=== PATIENT | male | born 1975 | race Two or more races ===

== ENCOUNTER 2020-07-08 12:35 | Emergency (ER) | payer OTHER ==
[~2020-07-08] VITALS: Ht 165.1 cm; Wt 83.9 kg
[2020-07-08] MEDS ORDERED: ACETAMINOPHEN 500 MG TAB PO ONE (13:00)
[2020-07-08] MEDS ORDERED: ONDANSETRON ODT 4 MG TAB PO ONE (13:00)
[2020-07-08] MEDS ORDERED: FAMOTIDINE (10MG/ML) 2ML VL IV ONE (13:15)
[2020-07-08] MEDS ORDERED: SODIUM CHLORIDE 0.9% 1,000 ML IV ONE (13:15)
[2020-07-08] MEDS ORDERED: ONDANSETRON HCL 4 MG/2 ML VIAL IV ONE (13:15)
[2020-07-08 13:54] LABS: Basophils # (auto) 0 10 ^3/uL (0-0.2); Basophils % (auto) 0.3 % (0.0-2.0); Eosinophils # (auto) 0 10 ^3/uL (0-0.8); Eosinophils % (auto) 0.4 % (0.0-7.0); Hematocrit 43.2 % (41.0-53.0); Hemoglobin 14.9 g/dL (13.5-17.5); Lymphocytes # (auto) 0.3 10 ^3/uL (0.4-5.4); Lymphocytes % (auto) 3.6 % (10.0-50.0); Mean Corpuscular Hemoglobin 29.4 pg (28.0-32.0); Mean Corpuscular Hgb Conc. 34.5 g/dL (32.0-36.0); Mean Corpuscular Volume 85.3 fL (80.0-100.0); Monocytes # (auto) 0.4 10 ^3/uL (0-1.3); Monocytes % (auto) 4.1 % (0.0-12.0); Neutrophils # (auto) 8.8 10 ^3/uL (1.6-8.6); Neutrophils % (auto) 91.6 % (37.0-80.0); Nucleated Red Blood Cells % 0.1 %; Platelet Count (auto) 154 10^3/uL (140-450); Red Blood Cells 5.07 10^6/uL (4.5-5.90); Red Cell Distribution Width 14.4 % (11.8-14.3); White Blood Cell 9.6 10^3/uL (4.4-10.8)
[2020-07-08 14:16] LABS: BUN/Creatinine Ratio 14.4; Calcium 8.6 mg/dL (8.5-10.1)
[2020-07-08 14:18] LABS: Bilirubin, Total 0.7 mg/dL (0.2-1.0); Total Protein 7.8 g/dL (6.4-8.2)
[2020-07-08] MEDS ORDERED: POTASSIUM CHL 20 Meq TABLET PO ONE (14:30)
[2020-07-08] MEDS ORDERED: POTASSIUM EFFERVESENT TAB 25 MEQ GT ONE (14:30)
[2020-07-08] MEDS ORDERED: cefTRIAXone 1GM/50ML D5W 50 ML IV ONE (14:30)
[2020-07-08] MEDS ORDERED: cloNIDine HCL 0.1 MG TAB PO ONE (15:00)
[2020-07-08 17:07] VITALS: BP 152/88
== END 2020-07-08 17:33 | disposition home or self-care (01) ==
LOC: ER 12:35
DX: K52.9 Noninfective gastroenteritis and colitis, unspecified (principal); E87.6 Hypokalemia; I10 Essential (primary) hypertension; Z20.822 Contact with and (suspected) exposure to COVID-19
CPT/HCPCS: 36415; 71045; 80053; 85025; 87426; 96361; 96365; 96375; 99284; J0696; J2405; J3490

== ENCOUNTER 2020-09-03 06:28 | Emergency (ER) | payer OTHER ==
[~2020-09-03] VITALS: Ht 170.2 cm; Wt 95.3 kg
[2020-09-03] MEDS ORDERED: HYDROcodone-ACET 5/325MG TAB PO ONE (06:45)
[2020-09-03 08:42] VITALS: BP 171/108
== END 2020-09-03 08:46 | disposition home or self-care (01) ==
LOC: ER 06:28
DX: S09.90XA Unspecified injury of head, initial encounter (principal); S02.2XXA Fracture of nasal bones, initial encounter for closed fracture; X58.XXXA Exposure to other specified factors, initial encounter; Y93.89 Activity, other specified; Y92.89 Other specified places as the place of occurrence of the external cause; Y99.8 Other external cause status
CPT/HCPCS: 70450; 70486; 72125

== ENCOUNTER 2021-09-29 06:09 | Emergency (ER) | payer OTHER ==
[~2021-09-29] VITALS: Ht 170.2 cm; Wt 86.2 kg
[2021-09-29 08:30] LABS: Basophils # (auto) 0.1 10 ^3/uL (0-0.2); Basophils % (auto) 0.5 % (0.0-2.0); Eosinophils # (auto) 0.1 10 ^3/uL (0-0.8)
[2021-09-29 08:32] LABS: Eosinophils % (auto) 0.6 % (0.0-7.0); Hemoglobin 14.7 g/dL (13.5-17.5); Lymphocytes # (auto) 0.6 10 ^3/uL (0.4-5.4); Lymphocytes % (auto) 5.2 % (10.0-50.0); Mean Corpuscular Hemoglobin 26.8 pg (28.0-32.0); Mean Corpuscular Hgb Conc. 32.7 g/dL (32.0-36.0); Mean Corpuscular Volume 81.7 fL (80.0-100.0); Monocytes # (auto) 0.7 10 ^3/uL (0-1.3); Monocytes % (auto) 5.8 % (0.0-12.0); Neutrophils # (auto) 10.3 10 ^3/uL (1.6-8.6); Neutrophils % (auto) 87.9 % (37.0-80.0); Red Blood Cells 5.51 10^6/uL (4.5-5.90); Red Cell Distribution Width 15.4 % (11.8-14.3); White Blood Cell 11.7 10^3/uL (4.4-10.8)
[2021-09-29 08:52] LABS: Albumin 3.4 g/dL (3.4-5.0); Calcium 8.3 mg/dL (8.5-10.1); Potassium 3.7 mmol/L (3.5-5.1)
[2021-09-29 08:55] LABS: Bilirubin, Total 0.3 mg/dL (0.2-1.0); Total Protein 7.1 g/dL (6.4-8.2)
[2021-09-29 11:55] LABS: Urine Bacteria NONE SEEN /hpf (None Seen); Urine Blood Negative /uL (Negative); Urine Specific Gravity 1.015 (1.001-1.035); Urine WBC <1 /hpf (0 - 3)
[2021-09-29 15:51] VITALS: BP 133/87
== END 2021-09-29 18:22 | disposition home or self-care (01) ==
LOC: ER 06:09
DX: K42.9 Umbilical hernia without obstruction or gangrene (principal); K46.9 Unspecified abdominal hernia without obstruction or gangrene; I10 Essential (primary) hypertension
CPT/HCPCS: 36415; 74176; 80053; 81001; 85025

== ENCOUNTER 2023-12-08 17:20 | Inpatient (IN) | payer OTHER ==
[~2023-12-08] VITALS: Ht 170.2 cm; Wt 87.0 kg
[2023-12-08 17:49] VITALS: PULSE 113; RESP 20; O2SAT 94
[2023-12-08 18:15] LABS: Basophils # (auto) 0.1 10 ^3/uL (0-0.2); Eosinophils # (auto) 0 10 ^3/uL (0-0.8); Mean Corpuscular Hgb Conc. 32.4 g/dL (32.0-36.0)
[2023-12-08 18:17] LABS: Basophils % (auto) 0.6 % (0.0-2.0); Eosinophils % (auto) 0.2 % (0.0-7.0); Hematocrit 37.4 % (41.0-53.0); Hemoglobin 12.1 g/dL (13.5-17.5); Lymphocytes # (auto) 2.1 10 ^3/uL (0.4-5.4); Lymphocytes % (auto) 15.9 % (10.0-50.0); Mean Corpuscular Hemoglobin 25.6 pg (28.0-32.0); Mean Corpuscular Volume 78.9 fL (80.0-100.0); Monocytes # (auto) 1.1 10 ^3/uL (0-1.3); Monocytes % (auto) 8.2 % (0.0-12.0); Neutrophils % (auto) 75.1 % (37.0-80.0); Nucleated Red Blood Cells % 0.1 %; Platelet Count (auto) 237 10^3/uL (140-450); Red Blood Cells 4.73 10^6/uL (4.5-5.90); Red Cell Distribution Width 17.2 % (11.8-14.3); White Blood Cell 13.3 10^3/uL (4.4-10.8)
[2023-12-08 18:38] LABS: INR 1.03 (0.9-1.15); Partial Thromboplastin Time 24.5 SEC (24.5-34.5); Prothrombin Time 10.9 sec (9.3-11.8)
[2023-12-08 18:42] LABS: Alanine Aminotransferase 69 U/L (7-40); Alkaline Phosphatase 133 U/L (46-116); Anion Gap 8 (5-15); Aspartate Aminotransferase 45 U/L (13-40); BUN/Creatinine Ratio 23.9 (10.0-20.0); Blood Urea Nitrogen 37 mg/dL (9-23); Calcium 9.5 mg/dL (8.7-10.4); Carbon Dioxide 30 mmol/L (20-30); Chloride 96 mmol/L (98-107); Glucose 88 mg/dL (74-106); Magnesium 2.1 mg/dL (1.6-2.6); Potassium 3.8 mmol/L (3.5-5.1); Sodium 134 mmol/L (136-145)
[2023-12-08 18:43] LABS: Albumin 4.4 g/dL (3.2-4.8); Bilirubin, Total 0.4 mg/dL (0.2-1.0)
[2023-12-08] MEDS ORDERED: TPN PER PHARMACY 0 ML IV SCH (19:15)
[2023-12-08 20:00] VITALS: PULSE 115; O2SAT 96
[2023-12-08] MEDS: SODIUM CHLORIDE 0.9% 1,000 ML IV ONE (21:09)
[2023-12-08] MEDS ORDERED: NITROGLYCERIN 0.4 MG SL TAB SL PRN (21:15)
[2023-12-08] MEDS ORDERED: ONDANSETRON HCL 4 MG/2 ML VIAL IV PRN (21:15)
[2023-12-08] MEDS ORDERED: ACETAMINOPHEN 325 MG TAB PO PRN (21:15)
[2023-12-08] MEDS: GABAPENTIN 100 MG CAP PO SCH (21:37)
[2023-12-08] MEDS: METOPROLOL TARTRATE 25 MG TAB PO SCH (21:37)
[2023-12-08] MEDS: ONDANSETRON HCL 4 MG/2 ML VIAL IV ONE (22:30)
[2023-12-08] MEDS: MORPHINE SULFATE 4 MG/ML SYR/VIAL IV ONE (22:30)
[2023-12-08] MEDS: AMINO ACID INFUSION IN D10W 1,000 ML IV ONE (22:58)
[2023-12-09] VITALS (8 sets, daily range): BP systolic 113–140; BP diastolic 62–83; PULSE 71–92; RESP 16–20; TEMP 97.4–98.8; O2SAT 90–96
[2023-12-09] MEDS: MORPHINE SULFATE INJ 2 MG/ml SYRG IV PRN (03:07)
[2023-12-09 06:10] LABS: Alanine Aminotransferase 57 U/L (7-40); Anion Gap 8 (5-15); BUN/Creatinine Ratio 24.1 (10.0-20.0); Blood Urea Nitrogen 32 mg/dL (9-23); Calcium 8.8 mg/dL (8.7-10.4); Carbon Dioxide 28 mmol/L (20-30); Chloride 97 mmol/L (98-107); Glucose 83 mg/dL (74-106); Potassium 3.3 mmol/L (3.5-5.1); Sodium 133 mmol/L (136-145)
[2023-12-09 06:11] LABS: Albumin 3.7 g/dL (3.2-4.8); Aspartate Aminotransferase 38 U/L (13-40)
[2023-12-09 06:12] LABS: Alkaline Phosphatase 116 U/L (46-116); Bilirubin, Total 0.5 mg/dL (0.2-1.0); Phosphorus 3.5 mg/dL (2.4-5.1); Total Protein 7.1 g/dL (5.7-8.2)
[2023-12-09 06:18] LABS: Magnesium 1.9 mg/dL (1.6-2.6)
[2023-12-09 06:34] LABS: Triglycerides 129 mg/dL (< 150)
[2023-12-09] MEDS ORDERED: DEXTROSE (50%) 50ML SYRG IV SCH (08:46)
[2023-12-09] MEDS: InsuLIN REG 1unit/0.01ml Soln (100units/ml) SC SCH (08:46)
[2023-12-09] MEDS: ACCU-CHEK COMFORT CURVE STRIP VI SCH (09:47)
[2023-12-09] MEDS: ENOXAPARIN SOD 40 MG/0.4 ML SYRINGE SC SCH (09:48)
[2023-12-09] MEDS: ASPirin 81 mg TAB PO SCH (09:48)
[2023-12-09] MEDS: POTASSIUM CHL 20MEQ/100ML 100 ML IV SCH (09:49)
[2023-12-09 11:22] LABS: Basophils # (auto) 0.1 10 ^3/uL (0-0.2); Basophils % (auto) 0.5 % (0.0-2.0); Eosinophils # (auto) 0 10 ^3/uL (0-0.8); Eosinophils % (auto) 0.3 % (0.0-7.0); Hematocrit 33.3 % (41.0-53.0); Hemoglobin 10.9 g/dL (13.5-17.5); Lymphocytes # (auto) 2.1 10 ^3/uL (0.4-5.4); Lymphocytes % (auto) 21.8 % (10.0-50.0); Mean Corpuscular Hgb Conc. 32.8 g/dL (32.0-36.0); Mean Corpuscular Volume 79.4 fL (80.0-100.0); Monocytes # (auto) 0.9 10 ^3/uL (0-1.3); Neutrophils # (auto) 6.4 10 ^3/uL (1.6-8.6); Neutrophils % (auto) 67.4 % (37.0-80.0); Platelet Count (auto) 183 10^3/uL (140-450); Red Cell Distribution Width 17.2 % (11.8-14.3); White Blood Cell 9.4 10^3/uL (4.4-10.8)
[2023-12-09 12:46] LABS: Urine Bacteria None Seen /hpf (None Seen)
[2023-12-09 13:05] LABS: Urine Blood Negative /uL (Negative); Urine Clarity Clear (Clear); Urine Color Light-Yellow (Yellow); Urine Protein, UAD TRACE (Negative); Urine Specific Gravity 1.021 (1.001-1.035); Urine Urobilinogen Normal (Negative); Urine WBC 1 /hpf (0 - 3); Urine pH 6.5 (5.0-9.0)
[2023-12-09] MEDS: SODIUM CHLORIDE 0.9% 1,000 ML IV ONE (14:23)
[2023-12-09] MEDS ORDERED: SODIUM CHLORIDE 0.9% 3,000 ML IV ONE (15:15)
[2023-12-09] MEDS ORDERED: POTASSIUM CHL 20MEQ/100ML 100 ML IV SCH (15:15)
[2023-12-09] MEDS: TPN PER PHARMACY IV NR (20:06)
[2023-12-09] MEDS: ENOXAPARIN SOD 100 MG/1 ML SYRINGE SC SCH (22:15)
[2023-12-09] MEDS: SODIUM CHLORIDE 0.9% 1,000 ML IV SCH (22:15)
[2023-12-10 01:00] VITALS: BP 113/64; PULSE 80; RESP 16; TEMP 97.6; O2SAT 94
[2023-12-10 05:00] VITALS: BP 124/84; PULSE 68; RESP 16; TEMP 97.4; O2SAT 94
[2023-12-10 07:10] LABS: Alanine Aminotransferase 58 U/L (7-40); Albumin 3.5 g/dL (3.2-4.8); Alkaline Phosphatase 117 U/L (46-116); Anion Gap 4 (5-15); Aspartate Aminotransferase 42 U/L (13-40); Blood Urea Nitrogen 18 mg/dL (9-23); Carbon Dioxide 28 mmol/L (20-30); Chloride 104 mmol/L (98-107); Glucose 94 mg/dL (74-106); Magnesium 2.2 mg/dL (1.6-2.6); Potassium 3.5 mmol/L (3.5-5.1); Sodium 136 mmol/L (136-145)
[2023-12-10 07:11] LABS: Bilirubin, Total 0.3 mg/dL (0.2-1.0); Phosphorus 2.2 mg/dL (2.4-5.1); Total Protein 6.8 g/dL (5.7-8.2)
[2023-12-10 08:00] VITALS: PULSE 78
[2023-12-10 09:00] VITALS: BP 134/68; PULSE 83; RESP 15; TEMP 98.1; O2SAT 98
[2023-12-10] MEDS: POTASSIUM EFFERVESENT TAB 25 MEQ PO ONE (09:30)
[2023-12-10] MEDS: POTASSIUM PHOSPHATE 22 MEQ in SODIUM CHL 0.9% 100 ML IV ONE (09:30)
[2023-12-10 12:30] VITALS: BP 145/75; PULSE 70; RESP 15; TEMP 97.5; O2SAT 92
[2023-12-10] MEDS ORDERED: MET25T PO (13:16)
[2023-12-10] MEDS ORDERED: ENO100SY SC (13:16)
[2023-12-10] MEDS ORDERED: GAB100C PO (13:16)
[2023-12-10] MEDS ORDERED: ACET-1882 PO (13:16)
[2023-12-10] MEDS ORDERED: POTASSIUM CHLORIDE IV NR (20:00)
[2023-12-10] MEDS ORDERED: SODIUM CHLORIDE IV NR (20:00)
[2023-12-10] MEDS ORDERED: FAT EMULSION IV NR (20:00)
[2023-12-10] MEDS ORDERED: [UNRECOGNIZED DRUG - OTHER] IV NR (20:00)
== END 2023-12-10 12:58 | disposition left against medical advice (07) | DRG 243 ==
LOC: EDBD 17:20 → ER 17:20 → TELE-CENTR 21:10 → TELE 21:10 → TELE-CENTR 23:58
PROVIDERS: ADMIT Nurse Practitioner; ATTEND Nurse Practitioner
PROC: 3E0436Z Introduction of Nutritional Substance into Central Vein, Percutaneous Approach (ICD-10-PCS; principal; 2023-12-09)
DX: K21.9 Gastro-esophageal reflux disease without esophagitis (principal); N17.0 Acute kidney failure with tubular necrosis; I71.02 Dissection of abdominal aorta; Z53.29 Procedure and treatment not carried out because of patient's decision for other reasons; R74.01 Elevation of levels of liver transaminase levels; I10 Essential (primary) hypertension; E87.6 Hypokalemia; E66.9 Obesity, unspecified; E46 Unspecified protein-calorie malnutrition; Z93.3 Colostomy status; Z86.79 Personal history of other diseases of the circulatory system; Z68.30 Body mass index [BMI] 30.0-30.9, adult; Z79.899 Other long term (current) drug therapy
CPT/HCPCS: 36415; 71045; 80053; 81001; 82306; 82607; 82962; 83036; 83605; 83735; 83880; 84100; 84132; 84443; 84478; 84484; 85025; 85610; 85730; 93005; 93306; G0378; J2405; J3480; J7131

== ENCOUNTER 2024-01-30 13:24 | Emergency (ER) | payer MEDICAID, OTHER ==
[~2024-01-30] VITALS: Ht 170.2 cm; Wt 80.0 kg
[~2024-01-30 13:24] MED LIST: ACET-1882 PO; ENO100SY SC; GAB100C PO; MET25T PO
[2024-01-30 13:30] VITALS: BP 168/14; RESP 0; O2SAT 0
== END 2024-01-30 13:32 ==
LOC: EDBD 13:24 → ER 13:24
DX: I46.9 Cardiac arrest, cause unspecified (principal); I10 Essential (primary) hypertension; I49.01 Ventricular fibrillation; Z79.899 Other long term (current) drug therapy
CPT/HCPCS: 31500; 92950